=== PATIENT | female | born 1950 | race Caucasian/White ===

== ENCOUNTER 2019-10-20 12:24 | Day surgery (SDC) | payer MEDICARE ==
[~2019-10-20] VITALS: Ht 170.2 cm; Wt 111.9 kg
[~2019-10-20 12:24] MED LIST: ASPI81EC PO; CLIN300 PO; LOSA50 PO; Lisinopril2.5 MG PO; Lovastatin10 MG PO
--- NOTE | 2019-10-20 13:31 | NUR ---
History, Chart, Medications and Allergies reviewed before start of procedure. Lungs clear T/O to Auscultation. Patient confirms NPO status and agrees with scheduled surgery. Pre-Op teaching done. Pt verbalizes understanding.
[2019-10-21 05:00] LABS: BASOPHILS ABSOLUTE AUTO 0.01 K/mm3 (0.00-0.23); BASOPHILS PERCENT AUTO 0 % (0-2); EOSINOPHILS PERCENT AUTO 0 % (0-6); Hematocrit 33.7 % (33.0-51.0); Hemoglobin 10.7 g/dL (11.5-16.0); IMMATURE GRAN ABSOLUTE AUTO 0.02 K/mm3 (0.00-0.10); IMMATURE GRAN PERCENT AUTO 0 % (0-1); LYMPHOCYTES ABSOLUTE AUTO 0.47 K/mm3 (0.84-5.20); LYMPHOCYTES PERCENT AUTO 7 % (21-46); MONOCYTES ABSOLUTE AUTO 0.17 K/mm3 (0.16-1.47); MONOCYTES PERCENT AUTO 2 % (4-13); Mean Corpuscular HGB 29.9 pg (26.0-34.0); Mean Corpuscular HGB Conc 31.8 g/dL (31.5-36.5); Mean Corpuscular Volume 94 fL (80-100); Mean Platelet Volume 10.6 fL (9.1-12.4); NEUTROPHILS ABSOLUTE AUTO 6.41 K/mm3 (1.96-9.15); NEUTROPHILS PERCENT AUTO 91 % (41-73); Platelet Count 184 K/mm3 (150-400); RDW Coefficient Variation 12.8 % (11.7-14.2); RDW Standard Deviation 44.7 fL (35.1-46.3); Red Blood Cell Count 3.58 M/mm3 (3.80-5.20); White Blood Cell Count 7.08 K/mm3 (4.00-11.30)
[2019-10-21 05:15] LABS: Anion Gap 9 mmol/L (6-16); Blood Urea Nitrogen 16 mg/dL (8-24); Bun/Creatinine Ratio 19.8 (12.0-20.0); CO2, Blood 24 mmol/L (21-32); Calcium, Blood 8.3 mg/dL (8.5-10.1); Chloride, Blood 105 mmol/L (98-108); Creatinine, Blood 0.81 mg/dL (0.40-1.00); Glomerular Filtration Rate >60 (60-); Glucose, Blood 164 mg/dL (70-99); Potassium, Blood 4.6 mmol/L (3.5-5.5); Sodium, Blood 138 mmol/L (136-145)
--- NOTE | 2019-10-21 07:49 | NUR ---
SHIFT SUMMARY: HOA IS POD1 FOR A LTKA. SHE IS A&O X 4. SHE REPORTS ADEQUATE PAIN CONTROL WITH APAP AND TORADOL. SHE DID HAVE ONE DOSE OF DILAUDID WHEN SHE FIRST PRESENTED TO THE FLOOR, BUT HAS DENIED FURTHER NEED OF IT. AQUACELL C/D&I. SHE IS TOLERATING PO INTAKE WELL. IV INFILTRATED THIS MORNING AND WAS REMOVED. SHE IS A ONE PERSON STANDBY ASSIST. SHE IS URINATING WITHOUT DIFFICULTY IN THE TOILET. VSS, HER BLOOD PRESSURE HAS BEEN IN THE 90'S AND UPPER 80'S SYSTOLIC. NO ACUTE EVENTS OVERNIGHT. SHE IS UP IN THE CHAIR WITH HER CALL LIGHT IN REACH. LUANN HOSE, PAS AND POLAR PACK IN PLACE. WILL REPORT TO DAY SHIFT RN.
[2019-10-21] MEDS ORDERED: Percocet 5-3251 EACH PO (09:20)
[2019-10-21] MEDS ORDERED: Aspir 8181 MG PO (09:21)
--- NOTE | 2019-10-21 14:17 | NUR ---
DISCHARGE: PT COMPLETED THERAPY X2 AND WAS CLEARED. DISCHARGE PACKET PRINTED AND PT EDUCATED. PT GIVEN SCRIPTS AND SENT WITH EXTRA DRESSINGS, POLAR PAC. PT IV DC'D BY STUDENT RN. PT LEFT UNIT AT ABOUT 1350 VIA WHEELCHAIR WITH FRANK THORNTON.
== END 2019-10-21 13:35 | disposition home or self-care (01) ==
LOC: ORSCMMR 12:24 → ORD 14:15 → ORSCMMR 14:15 → ORD 15:45 → SURS 20:19 → ORSCMMR 10-21 13:35 → ORD 11-17 09:45
PROVIDERS: Orthopaedic Surgery
PROC: 0SRD0JA Replacement of Left Knee Joint with Synthetic Substitute, Uncemented, Open Approach (ICD-10-PCS; principal; 2019-10-20 14:15)
DX: M17.12 Unilateral primary osteoarthritis, left knee (principal); I10 Essential (primary) hypertension; E11.9 Type 2 diabetes mellitus without complications; E78.5 Hyperlipidemia, unspecified; E66.01 Morbid (severe) obesity due to excess calories; Z68.38 Body mass index [BMI] 38.0-38.9, adult; Z79.899 Other long term (current) drug therapy; Z79.82 Long term (current) use of aspirin
CPT/HCPCS: 36415; 73560-LT; 80048; 82947; 85025; 86850; 86900; 86901; 88300; 97110; 97112; 97116; 97162; A9270-GY; C1776; J0171; J0690; J0735; J1100; J1170; J1885; J2250; J2370; J2405; J2704; J2795; J3010; J7120

== ENCOUNTER 2021-06-04 11:04 | Emergency (ER) | payer MEDICARE ==
[~2021-06-04] VITALS: Ht 170.2 cm; Wt 111.1 kg
[~2021-06-04 11:04] MED LIST changes: +Aspir 8181 MG PO; +Percocet 5-3251 EACH PO
[2021-06-04 12:01] LABS: Alanine Aminotransfer (ALT/SGP 60 U/L (12-78); Albumin, Blood 3.4 g/dL (3.4-5.0); Albumin/Globulin Ratio 0.8 (0.8-1.8); Alk Phos 76 U/L (50-136); Anion Gap 5 mmol/L (6-16); Aspartate Aminotrans (AST/SGOT 32 U/L (12-37); Bilirubin, Total 0.4 mg/dL (0.1-1.0); Blood Urea Nitrogen 15 mg/dL (8-24); CO2, Blood 26 mmol/L (21-32); Calcium, Blood 9.2 mg/dL (8.5-10.1); Chloride, Blood 106 mmol/L (98-108); Creatinine, Blood 0.79 mg/dL (0.40-1.00); Globulin, Blood 4.3 g/dL (2.2-4.0); Glomerular Filtration Rate >60 (60-); Glucose, Blood 129 mg/dL (70-99); Sodium, Blood 137 mmol/L (136-145); Total Protein, Blood 7.7 g/dL (6.4-8.2); Troponin I <0.015 ng/mL (0.000-0.040)
[2021-06-04 12:08] LABS: BASOPHILS ABSOLUTE AUTO 0.04 K/mm3 (0.00-0.23); BASOPHILS PERCENT AUTO 1 % (0-2); EOSINOPHILS ABSOLUTE AUTO 0.11 K/mm3 (0.00-0.68); EOSINOPHILS PERCENT AUTO 2 % (0-6); Hematocrit 38.6 % (33.0-51.0); Hemoglobin 12.7 g/dL (11.5-16.0); IMMATURE GRAN ABSOLUTE AUTO 0.01 K/mm3 (0.00-0.10); IMMATURE GRAN PERCENT AUTO 0 % (0-1); LYMPHOCYTES ABSOLUTE AUTO 1.86 K/mm3 (0.84-5.20); LYMPHOCYTES PERCENT AUTO 37 % (21-46); MONOCYTES ABSOLUTE AUTO 0.53 K/mm3 (0.16-1.47); MONOCYTES PERCENT AUTO 10 % (4-13); Mean Corpuscular HGB 30.5 pg (26.0-34.0); Mean Corpuscular HGB Conc 32.9 g/dL (31.5-36.5); Mean Corpuscular Volume 93 fL (80-100); Mean Platelet Volume 10.2 fL (9.1-12.4); NEUTROPHILS ABSOLUTE AUTO 2.53 K/mm3 (1.96-9.15); NEUTROPHILS PERCENT AUTO 50 % (41-73); Platelet Count 205 K/mm3 (150-400); RDW Coefficient Variation 12.5 % (11.7-14.2); RDW Standard Deviation 42.5 fL (35.1-46.3); Red Blood Cell Count 4.16 M/mm3 (3.80-5.20); White Blood Cell Count 5.08 K/mm3 (4.00-11.30)
== END 2021-06-04 12:27 | disposition home or self-care (01) ==
LOC: ER 11:04
PROVIDERS: Emergency Medicine
DX: I10 Essential (primary) hypertension (principal); Z88.1 Allergy status to other antibiotic agents; Z91.018 Allergy to other foods; Z79.899 Other long term (current) drug therapy; Z79.82 Long term (current) use of aspirin
CPT/HCPCS: 36415; 80053; 84484; 85025; 93005; 93010; 99283-25

== ENCOUNTER 2021-09-05 06:37 | Day surgery (SDC) | payer MEDICARE ==
[~2021-09-05] VITALS: Ht 170.2 cm; Wt 116.0 kg
--- NOTE | 2021-09-05 11:13 | NUR ---
BLADDER SCANNER DONE 189 CC NOTED IN BLADDER
--- NOTE | 2021-09-05 11:51 | NUR ---
ARRIVAL PT ARRIVED TO UNIT FROM PACU ON BED. BRADLY WRAP TO R KNEE CDI. POLAR VY ON, LUANN HOSE ON. PT DENIES PAIN. ABLE TO WIGGLE TOES AND REPORTS SENSATION TO LOWER EXTREMETIES GRADUALLY COMING BACK. PT DENIES NAUSEA AND REMAINS ON ROOM AIR. PT TOLERATING PO FLUIDS.
--- NOTE | 2021-09-05 16:38 | NUR ---
SHIFT SUMMARY A&O X4, VSS ON RA. S/P R TKA, AQUACEL & BRADLY WRAP IN PLACE, C/D/I. DENIES N/T. LEGS ELEVATED & POLAR PACK ON WHEN PATIENT AT REST. PT HAS NOT SEEN PT TODAY BUT AMBULATING WELL W/ FWW&GB. TOLERATING PO DIET WELL, DENIES N/V, VOIDING WELL. PAIN MANAGED PER EMAR. WILL REPORT TO ONCOMING RN.
--- NOTE | 2021-09-06 04:43 | NUR ---
SUMMARY NO NEW ISSUES NOTED. PT IS VOIDING WELL. PT IS AMBULATING WELL W/ GB AND FWW. PT PAIN IS MANAGED WELL PER EMAR. PT HAS SEPT SOME DURING SHIFT. PT CURRENTLY AWKE IN NO DISTRESS. CALL LIGHT IN REACH.
[2021-09-06 05:34] LABS: BASOPHILS ABSOLUTE AUTO 0.02 K/mm3 (0.00-0.23); BASOPHILS PERCENT AUTO 0 % (0-2); EOSINOPHILS PERCENT AUTO 0 % (0-6); Hematocrit 34.3 % (33.0-51.0); Hemoglobin 11.1 g/dL (11.5-16.0); IMMATURE GRAN ABSOLUTE AUTO 0.04 K/mm3 (0.00-0.10); IMMATURE GRAN PERCENT AUTO 0 % (0-1); LYMPHOCYTES PERCENT AUTO 8 % (21-46); MONOCYTES ABSOLUTE AUTO 0.52 K/mm3 (0.16-1.47); MONOCYTES PERCENT AUTO 5 % (4-13); Mean Corpuscular HGB 30.4 pg (26.0-34.0); Mean Corpuscular HGB Conc 32.4 g/dL (31.5-36.5); Mean Corpuscular Volume 94 fL (80-100); Mean Platelet Volume 10.7 fL (9.1-12.4); NEUTROPHILS ABSOLUTE AUTO 10.01 K/mm3 (1.96-9.15); NEUTROPHILS PERCENT AUTO 87 % (41-73); Platelet Count 203 K/mm3 (150-400); RDW Coefficient Variation 12.6 % (11.7-14.2); RDW Standard Deviation 43.9 fL (35.1-46.3); Red Blood Cell Count 3.65 M/mm3 (3.80-5.20); White Blood Cell Count 11.49 K/mm3 (4.00-11.30)
[2021-09-06 06:06] LABS: Bun/Creatinine Ratio 25.4 (12.0-20.0); Calcium, Blood 9.1 mg/dL (8.5-10.1); Creatinine, Blood 0.98 mg/dL (0.40-1.00); Potassium, Blood 4.9 mmol/L (3.5-5.5)
[2021-09-06] MEDS ORDERED: Percocet 5-3251 EACH PO (08:12)
[2021-09-06] MEDS ORDERED: ASPIR 8181 M1 PO (08:12)
--- NOTE | 2021-09-06 10:41 | NUR ---
DISCHARGE NOTE: PATIENT WAS EDUCATED ON DISCHARGE INSTRUCTIONS. SHE VERBALIZED UNDERSTANDING OF INSTRUCTIONS. HARD PERSCRIPTIONS ARE IN INSTRUCTIONS FOLDER. IV WAS TAKEN OUT AND WNL. HER RIGHT KNEE HAS AQUACEL THAT IS C/D/I. SHE IS A SBA WITH FWW AND GAIT BELT. SHE IS TOLERATING PO INTAKE AND IS VOIDING. SHE IS DRESSED AND HAS HER ITEMS GATHERED. SHE WAS WHEELCHAIRED OUT TO HER DAUGHTERS CAR TO BE TAKEN HOME.
== END 2021-09-06 10:36 | disposition home or self-care (01) ==
LOC: ORSCMMR 06:37 → SURS 11:25 → ORSCMMR 11:25 → SURS 09-06 10:36 → ORD 09-12 11:00 → ORSCMMR 09-12 11:00
PROVIDERS: Orthopaedic Surgery
PROC: 0SRC0JA Replacement of Right Knee Joint with Synthetic Substitute, Uncemented, Open Approach (ICD-10-PCS; principal; 2021-09-05 08:15)
DX: M17.11 Unilateral primary osteoarthritis, right knee (principal); Z96.652 Presence of left artificial knee joint; E66.01 Morbid (severe) obesity due to excess calories; Z68.41 Body mass index [BMI] 40.0-44.9, adult; I10 Essential (primary) hypertension; E11.9 Type 2 diabetes mellitus without complications; Z79.899 Other long term (current) drug therapy; Z79.82 Long term (current) use of aspirin
CPT/HCPCS: 36415; 73560-RT; 80048; 85025; 97110; 97116; 97162; A9270; C1776; J0171; J0690; J0735; J1100; J1885; J2250; J2370; J2405; J2704; J2795; J3010; J7120